=== PATIENT | female | born 1985 | race Caucasian/White ===

== ENCOUNTER 2025-03-29 10:09 | Emergency (ER) | payer BC, SELFPAY ==
[2025-03-29 10:14] VITALS: BP 121/67
[2025-03-29 10:43] VITALS: BP 110/79
[2025-03-29 10:58] LABS: Hematocrit 40.8 % (37.0-47.0); Hemoglobin 13.6 g/dL (12.0-16.0); Mean Corp Hgb Conc. 33.3 g/dL (33.0-37.0); Mean Corpuscular Volume 85.7 fL (81.0-99.0); Nucleated Red Blood Cells % 0 %; Platelet Count 242 10^3/uL (130-400); Red Cell Dist. Width 12.3 % (11.5-14.5)
--- NOTE | 2025-03-29 11:10 | ED.GENMED ---
History of Present Illness
General
Chief Complaint: Abdominal Pain
Source: patient
Exam Limitations: none
Time Seen by Provider: 03/29/25 10:33
Nursing documentation reviewed up to this point in time: agreed with
History of Present Illness
History of Present Illness:
Patient is a 40-year-old female who presents to the emergency department with right lower abdominal pain. She states symptoms started acutely yesterday around 2 PM and have been gradually worsening. She describes a constant dull ache in her right
lower abdomen with intermittent waves of sharp pain. She denies any radiation of pain into her back. Pain is with certain movements and riding in the car. She has been experiencing nausea however denies any vomiting or known fevers. No dysuria
or hematuria. No diarrhea or constipation. She has had a very little appetite since onset of pain yesterday.
Patient does have a history of endometriosis however states pain associated with this is typically much different in quality and at a different part of her menstrual cycle.
Patient did take 1 g Tylenol prior to arrival in ED.
Review of Systems
Review of Systems
Allergies reviewed?: Yes
All Other Systems: ROS reviewed and negative except as documented in HPI and ROS
Phy Exam
Physical Exam
Physical Exam:
Vitals: Patient's vital signs are stable. Afebrile
General: Patient is well appearing, no acute distress. Nontoxic appearing
Skin: Warm and dry, no rashes or lesions
Head: Normocephalic, atraumatic
Eyes: Sclera nonicteric. EOMs intact. No nystagmus.
Throat: Protecting airway
Neck: Normal ROM, no cervical spine tenderness, no meningismus
Cardiac: Regular rate and rhythm, no murmurs.
Pulm: Normal respiratory effort, no wheezes, rales, rhonchi heard on exam
.
Abdomen: Mild tenderness in right lower abdomen. No rebound tenderness or guarding.
Extremities: No evidence of cyanosis or edema. 2+ palpable DP pulses bilaterally
Neuro: AAOx3. Grossly intact
Psychiatric: Normal affect.
Course
Orders/Labs/Results
Orders:
Orders
03/29/25 10:49
Complete Blood Count/With Diff Urgent
Comprehensive Metabolic Panel Urgent
HCG, Serum Qualitative Screen Urgent
Comment: ADD ON
Lipase Urgent
Magnesium Urgent
Urinalysis Reflex To Culture Urgent
Date Specimen was Collected: 03/29/25
Time Specimen was Collected: 10:37
03/29/25 10:55
0.9% Sodium Chloride 1000 ml [Nss] 1,000 ml IV BOLUS
Ketorolac [Toradol] 15 mg IV NOW STA
03/29/25 10:59
Add On- LAB Urgent
Tests Added?: serumm hcg
03/29/25 11:00
CT Abd/pelvis W Iv Cont Urgent
Comment:
Reason For Exam: RLQ pain
03/29/25 10:49
03/29/25 10:49
Vital Signs
Initial and Last Documented VS:
Initial Vital Signs
Temp Pulse Resp BP Pulse Ox
98.1 F 68 16 121/67 98
03/29/25 10:14 03/29/25 10:14 03/29/25 10:14 03/29/25 10:14 03/29/25 10:14
Last Documented Vital Signs
Temp Pulse Resp BP Pulse Ox
97.6 F 56 11 110/79 99
03/29/25 11:15 03/29/25 11:45 03/29/25 11:45 03/29/25 11:15 03/29/25 11:45
MDM/Problems Addressed
Differential Diagnosis Includes:
Not limited to: gastroenteritis, ovarian cyst, endometriosis, appendicitis, acute cholecystitis, pyelonephritis, etc
MDM/Problems Addressed:
40-year-old female presenting with one day of right lower abdominal pain associated with anorexia and nausea. No known fevers. No vomiting, diarrhea/constipation, or dysuria. Vitals and physical exam as above. Differential broad. Given location of
pain- appendicitis would be on differential. Other considerations would be ovarian etiology or other [employer] Problems as patient does have a history of endometriosis. Lower suspicion for urinary source as patient has no UTI symptoms.
ED plan: labs, UA, CT scan abdomen/pelvis with IV contrast. Will treat pain with Toradol, give IV fluids and reassess after above.
Update: labs noted. No abnormalities on CBC or CMP. No leukocytosis. Urine shows no red blood cells or any evidence of infection. CT scan without acute abdominal pathology. Normal appendix noted.
Work up in ED negative. At this point, very low suspicion for acute intra-abdominal infectious process given patient is afebrile with normal white blood cell count as well as negative imaging. Feel stable for discharge home with supportive care,
primary care follow-up. Return precautions discussed.
Chronic conditions affecting care:
N/A
Acute Exacerbation and/or Progression of Chronic Illness:
N/A
*Radiology
Radiology exam reviewed: radiology read reviewed
*Pulse Oximetry
SaO2: 100
Oxygen Mode of Delivery: Room air
Patient hypoxic: no
*EKG
Interpreted by ED Provider?: NA
*Zipper Lining Folder Interpretation
Rate: Zipper Lining Folder- N/A
*Critical Care Note
Total Time (30-74mins, 75-104mins- exclusive of procedures): Not Applicable
ED Attending Note
-
Portions of this chart may have been created with voice recognition software.� Occasional wrong word or��sound alike� substitutions may have occurred due to the inherent limitations of voice recognition software.
Discharge Plan
Departure
Patient Disposition: Home (Routine Discharge)
Date of Disposition: 03/29/25
Time of Disposition: 13:15
Patient with high blood pressure during this ER visit?: No
Discharge Problem:
Abdominal pain
Instructions: [place] diet, Abdominal Pain
Prescriptions:
No Action
No Current Medications
0
Activity Restrictions/Additional Instructions:
RETURN TO THE EMERGENCY DEPARTMENT ANY FEVER, CHILLS, PERSISTENT/WORSENING ABDOMINAL PAIN, INTRACTABLE NAUSEA/VOMITING, LACK OF APPETITE, WORSENING IN CURRENT SYMPTOMS, OR ANY OTHER CONCERNS
- As discussed�your lab work, urinalysis showed no acute abnormalities. Your CT scan showed evidence of a cyst along your left ovary however no other acute findings. Your appendix appeared normal on imaging.
- You can take Tylenol and/or Motrin as needed for pain. Continue to stay well-hydrated.
- Follow-up with your primary care provider for further evaluation/management and to ensure that your symptoms are improving
Monitor your symptoms closely and return to the emergency department with any acute worsening/new symptoms or any other concerns
Interventions
Interventions:
*Risk Screen - Suicide Last Done: 03/29/25 10:14
*General Assessment Last Done: 03/29/25 11:15
*Neglect/Abuse Screening Last Done: 03/29/25 10:14
*ED- Fall Risk Assessment Last Done: 03/29/25 11:15
*ED COVID-19 Vaccine History Last Done: 03/29/25 11:15
*Nursing Disposition Last Done: 03/29/25 13:26
VJ-Zwyndp-Jlataihyva Assessment Last Done: 03/29/25 11:15
Discharge Date and Time
Discharge Date/Time: 03/29/25 13:49
Print Language: POLISH
[2025-03-29 11:15] VITALS: BP 110/79; BMI 31.7
[2025-03-29 11:16] LABS: ALT (SGPT) 22 U/L (0-35); AST (SGOT) 21 U/L (14-36); Albumin 4.5 g/dl (3.5-5.0); Alkaline Phosphatase 49 U/L (38-126); Blood Urea Nitrogen 10 mg/dl (7-17); Calcium 9.6 mg/dl (8.4-10.2); Carbon Dioxide 27 mmol/L (22-30); Chloride 107 mmol/L (98-107); Glucose 79 mg/dl (70-99); Lipase 87 U/L (23-300); Magnesium 1.9 mg/dl (1.6-2.3); Potassium 4.4 mmol/L (3.5-5.1); Sodium 138 mmol/L (135-145); Total Protein 7.3 g/dl (6.3-8.2); eGFR > 60.00
[2025-03-29 11:34] LABS: Urine Character Clear (Clear)
[2025-03-29] MEDS: TORADOL 15 MG IV (12:02)
[2025-03-29] MEDS: NSS 1000 IV (12:02)
[2025-03-29 12:28] LABS: HCG, Serum Qualitative Screen Negative
== END 2025-03-29 13:49 | disposition home or self-care (01) ==
LOC: EMR 10:09
PROVIDERS: EMERGENCY PHYSICIAN Student in an Organized Health Care Education/Training Program; FAMILY PHYSICIAN Family Medicine
DX: R10.31 Right lower quadrant pain (principal)
CPT/HCPCS: 99284; 96374; 96361; 74177; 80053; 81003; 83690; 83735; 84703; 85025; Q9967